=== PATIENT | female | born 1960 | race Caucasian/White ===

== ENCOUNTER → 2019-08-10 | Outpatient (CLI) | payer BC ==
--- NOTE | 2019-08-10 15:14 | PCVCIMAG ---
EXAM: BILATERAL CAROTID DUPLEX INDICATION: Syncope. Memory loss. FINDINGS: Doppler Measurements (centimeters per second): RIGHT: Peak CCA-71, Peak ECA-72, Diastolic ICA-35, Peak ICA-77, ICA/CCA Ratio-1.1. LEFT: Peak CCA-93, Peak ECA-64, Diastolic ICA-27, Peak ICA-80, ICA/CCA Ratio-0.9. RIGHT CAROTID: The carotid bulb has no significant plaque. The proximal internal carotid artery shows no significant stenosis. The common carotid artery shows no significant stenosis. The external carotid artery shows no significant stenosis. LEFT CAROTID: The carotid bulb has no significant plaque. The proximal internal carotid artery shows no significant stenosis. The common carotid artery shows no significant stenosis. The external carotid artery shows no significant stenosis. Antegrade flow in both vertebral arteries. IMPRESSION: No significant stenosis of the right internal carotid artery with no significant plaque. No significant stenosis of the left internal carotid artery with no significant plaque. LOC:[place] [id number]
--- NOTE | 2019-08-10 16:15 | PCVCIMAG ---
APPROVED REPORT Study performed: 08/10/2019 14:51:17 Exam: Stress Echocardiogram Indication: Hyperlipidemia, Hypertension, Family history of CAD Patient Location: Echo lab Status: routine Ht: 5 ft 5 in HR: 71 bpm BP: 110/80 mmHg Rhythm: NSR Medical History Medical History: syncope, Chest tightness, PTSD Procedure The patient underwent an Exercise Stress Test using the Juan Miguel Protocol. Blood pressure, heart rate, and EKG were monitored. An Echocardiogram was performed by document image technician in four stages in quad fashion. At peak stress, four selected images were obtained and placed side by side with resting images for comparison. Stress Test Details Stress Test: Exercise stress testing was performed using a Juan Miguel protocol. HR Resting HR: 71 bpmMax Heart Rate (APMHR): 164 bpm Max HR Achieved: 142 bpmTarget HR (85% APMHR): 139 bpm % of APMHR: 86 Recovery HR: 98 bpm HR response to stress: Normal HR response to stress BP Resting BP: 110/80 mmHg Max BP: 148/80 mmHg Recovery BP: 124/76 mmHg BP response to stress: Normal blood pressure response to stress. ECG Resting ECG: Sinus Rhythm Stress ECG: Sinus Rhythm Recovery ECG: Sinus Rhythm Clinical Reason for Termination: Maximal effort Exercise duration: 10 min sec Highest Stage Achieved: Stage 3: 3.4 mph at 14% grade. Exercise capacity: 13.40 METs Overall Exercise Capacity for Age: Normal Pre-Stress Echo The resting Echocardiogram showed normal left ventricular contractility with an estimated Ejection Fraction of about 55-60%. Normal wall motion in all segments on baseline images. Post-Stress Echo The stress Echocardiogram showed normal left ventricular contractility with an estimated Ejection Fraction of about 60-65%. Normal augmentation of wall motion in all segments on post stress images. Clinical No clinical or ECG evidence for ischemia. Conclusion Clinical Response: Non-ischemic Exercise Capacity: Average Stress ECG Response: Non-ischemic Stress Echo Images: Non-ischemic The left ventricle is normal in size and wall thickness in both the rest and stress images. No significant valvular abnormalities. Other Information Study Quality: Good <Conclusion> The left ventricle is normal in size and wall thickness in both the rest and stress images. No significant valvular abnormalities.
== END | disposition home or self-care (01) ==
LOC: PCVCIMAG 13:34
PROVIDERS: ATTEND Internal Medicine Cardiovascular Disease
DX: I10 Essential (primary) hypertension (principal); R55 Syncope and collapse; F43.10 Post-traumatic stress disorder, unspecified
CPT/HCPCS: 93325; 93351; 93880